=== PATIENT | male | born 1980 | race Caucasian/White ===

== ENCOUNTER 2017-10-31 20:39 | Emergency (ER) | payer OTHER ==
[~2017-10-31] VITALS: Ht 177.8 cm; Wt 117.9 kg
[2017-10-31] MEDS ORDERED: IBUPROFEN 200200 M1 (20:55)
[2017-10-31] MEDS ORDERED: ATIVAN1 MG (20:55)
[2017-10-31] MEDS ORDERED: METFORMIN HCL500 MG (20:55)
[2017-10-31] MEDS ORDERED: NORCO 5-325 TA1 EAC1 PO (21:45)
[2017-10-31 22:01] VITALS: BP 138/91
== END 2017-10-31 22:02 | disposition home or self-care (01) ==
LOC: M.ERS 20:39
DX: S89.92XA Unspecified injury of left lower leg, initial encounter (principal); E11.9 Type 2 diabetes mellitus without complications; Z88.8 Allergy status to other drugs, medicaments and biological substances; X50.1XXA Overexertion from prolonged static or awkward postures, initial encounter; Y93.89 Activity, other specified; Y92.89 Other specified places as the place of occurrence of the external cause; Y99.8 Other external cause status